=== PATIENT | male | born 1960 | race Caucasian/White ===

== ENCOUNTER 2016-06-08 14:00 | Emergency (ER) | payer MEDICAID ==
[2016-06-08 14:37] LABS: BASOPHIL# 0.1 X 10^3uL (0.0-0.1); BASOPHILS 0.5 % (0.0-2.0); EOSINOPHILS 1.4 % (0.0-6.0); EOSINOPHILS# 0.1 X 10^3uL (0.0-0.4); HEMATOCRIT 42.8 % (42.0-54.0); HEMOGLOBIN 14.7 g/dL (14.0-18.0); LYMPHOCYTES 26.2 % (20.0-40.0); LYMPHOCYTES# 2.7 X 10^3uL (0.8-3.8); MEAN CELL VOLUME 93.9 fL (80.0-100.0); MEAN CORPUS. HGB CONCENTRATION 34.3 g/dL (32.0-36.0); MEAN CORPUSCULAR HEMOGLOBIN 32.2 pg (29.0-35.0); MEAN PLATELET VOLUME 8.1 fL (7.4-10.4); MONOCYTES# 0.6 X 10^3uL (0.2-1.0); NEUTROPHILS 65.9 % (54.0-75.0); NEUTROPHILS# 6.7 X 10^3uL (2.6-6.7); PLATELET COUNT 319 X 10^3uL (130-440); RED BLOOD COUNT 4.56 X 10^6uL (4.20-6.10); RED CELL DISTRIBUTION WIDTH 13.2 % (11.5-14.5); WHITE BLOOD COUNT 10.2 X 10^3uL (3.9-10.7)
[2016-06-08 14:49] LABS: ALBUMIN 4.2 g/dL (3.5-5.0); ALKALINE PHOSPHATASE 72 U/L (38-126); ALT 36 U/L (21-72); AMYLASE 46 U/L (30-110); AST 25 U/L (17-59); BILIRUBIN, DIRECT 0.2 mg/dL (0.0-0.4); BILIRUBIN, TOTAL 0.6 mg/dL (0.2-1.3); BLOOD UREA NITROGEN 15 mg/dL (9-20); CALCIUM 9.3 mg/dL (8.4-10.2); CHLORIDE 101 mmol/L (98-107); CREATININE 0.8 mg/dL (0.7-1.3); EST GLOMERULAR FILTRATION RATE > 60 mL/min; GLUCOSE 100 mg/dL (70-100); LIPASE 148 U/L (23-300); POTASSIUM 3.6 mmol/L (3.5-5.1); SODIUM 139 mmol/L (137-145); TOTAL PROTEIN 7.4 g/dL (6.3-8.2)
--- NOTE | 2016-06-08 15:31 | US REPORT ---
Emergent right upper quadrant ultrasound was performed. No prior study is available for comparison. The gallbladder and biliary tree appear unremarkable. No stones, wall thickening, duct dilatation or fluid collection is identified. The liver and right kidney appear unremarkable. Limited images of the pancreas are unremarkable. IMPRESSION: Unremarkable emergent right upper quadrant ultrasound. MTDD
--- NOTE | 2016-06-08 15:49 | ER NURSING DOCUMENTATION ---
Nurse's Notes [facility] Name:Uriel Luna Age:56 yrs Sex:Male :1960 Arrival Date:06/08/2016 Time:14:00 Bed4 Private MD:Jesisca [facility] Diagnosis:Abdominal Pain, Epigastric Presentation: 06/08 14:02 Acuity: MILA 3 tg 14:02 Presenting complaint: Patient states: Lynnette Santos called to say she was sending pt over tg for CT of ABD due to ABD pain and elevated lipase. Transition of care: Jessica. 14:02 Method Of Arrival: Private Vehicle tg 14:16 Presenting complaint: Patient states: "I've had LUQ pain for 2 weeks with emesis, sj especially after drinking hot water Monday morning.". Triage Assessment: 14:22 General: Appears in no apparent distress, Behavior is cooperative, pleasant. Pain: sj Complains of pain in left upper quadrant Pain currently is 1 out of 10 on a pain scale. Neuro: Level of Consciousness is awake, alert, Oriented to person, place, time, event. Cardiovascular: Capillary refill < 3 seconds. Respiratory: Airway is patent Respiratory effort is even, unlabored, Respiratory pattern is regular. GI: Abdomen is flat, non- distended. Historical: - Allergies: No known drug Allergies; - Home Meds: 1. fentanyl patch 100 mcg 2. Phenergan Oral 3. Reglan Oral - PMHx: chronic nausea; - PSHx: None; - Tetanus: < 10 years. - Ebola Screening: : Patient negative for fever greater than or equal to 101.5 degrees Fahrenheit, and additional compatible Ebola Virus Disease symptoms. Patient denies exposure to infectious person. Patient denies travel to an Ebola-affected area in the 21 days before illness onset. No symptoms or risks identified at this time. . - Immunization history: Pneumococcal vaccine status is unknown, Flu Vaccine < 1 year. - Social history: Smoking status: Patient states former smoker of tobacco. Patient uses marijuana Patient/guardian denies using alcohol. Screenin:25 Infectious Disease Risk Unable to Obtain. Abuse screen: Denies threats or abuse. Denies tg injuries from another. Nutritional screening: No deficits noted. Assessment: 14:29 See Triage Assessment done by same RN. sj 15:47 GI: Bowel sounds present X 4 quads. Abd is soft and non tender X 4 quads. Vital Signs: 14:28 BP 113 / 71; Pulse 64; Resp 16; Temp 98.4(TE); Pulse Ox 87% on R/A; Weight 68.04 kg; sj Height 5 ft. 7 in. (170.18 cm); Pain 1/10; 15:46 BP 108 / 62; Pulse 56; Resp 16; Pulse Ox 92% on R/A; Pain 0/10; sj 14:28 Body Mass Index 23.49 (68.04 kg, 170.18 cm) ED Course: 14:01 Patient arrived in ED. lm3 14:01 [facility] is Private Physician. lm3 14:02 Ben Sahu, RN is Primary Nurse. tg 14:02 Triage completed. tg 14:19 Inserted peripheral IV: 18 gauge in left forearm and blood collected. tg 14:19 Oxygen Oxygen administration via nasal cannula @ 2L/min. tg 14:29 Notified ED Physician of patient's arrival and chief complaint. Dr. Rudolph notified. sj 14:29 Valuables Remains with patient Patient has correct armband on for positive sj identification. Bed in low position. Call light in reach. Side rails up X 1. 14:52 Kavin Rudolph MD is Attending Physician. cd 15:40 [facility] is Referral Physician. cd 15:40 Urine collected. Clean catch specimen. Administered Medications: 14:29 Drug: NS 0.9% 1000 ml; Route: IV; Rate: bolus; Site: left forearm; Delivery: [place] tg Tubing; 15:31 Follow up: IV Status: Completed infusion; IV Intake: 1000ml Point of Care Testing: Urine Dip: 15:40 pH: 5.5; ; Specific [place]: 1.25; Ketones: Small; Glucose: Negative; Protein: Positive sj (+); Leukocytes: Negative; Nitrite: Negative ; Blood: Negative; Bilirubin: Small (+) ; Urobilinogen: Small Intake: 15:31 IV: 1000ml; Total: 1000ml. sj Outcome: 15:41 Discharge ordered by . cd 15:47 Discharged to home ambulatory. sj 15:47 Condition: stable 15:47 Instructed on discharge instructions, follow up and referral plans. Demonstrated understanding of instructions. 15:47 IV D/Billy 15:48 Patient left the ED. Signatures: Ben Sahu RN RN tg Daley, Chris, MD MD cd Janzen, Sarah sj McKibbon-Moore, Lisa lm3
--- NOTE | 2016-06-08 15:49 | ER PHYSICIAN DOCUMENTATION ---
Physician Documentation [facility] Name:Uriel Luna Age:56 yrs Sex:Male :1960 Arrival Date:06/08/2016 Time:14:00 Bed4 [facility] Disposition: 06/08/16 15:41 Discharged to Home/Self Care. Impression: Abdominal Pain, Epigastric. - Condition is Good. - Discharge Instructions: ABDOMINAL PAIN, Unkown Cause, (Male). - Medical Reconciliation form form. - [facility]; When: Tomorrow; Reason: Recheck today's complaints, Continuance of care. - Problem is new. - Symptoms are resolved. HPI: 06/08 15:41 This 56 yrs old Male presents to ER via Private Vehicle with complaints of cd Abdominal Pain with elevated Lipase. 15:41 The patient presents with abdominal pain in the left upper quadrant. Onset: The cd symptoms/episode began/occurred gradually, 3 day(s) ago. The symptoms radiate to back. Associated signs and symptoms: Pertinent negatives: anorexia, blood in stools, chest pain, diarrhea, fever, hematuria, nausea, shortness of breath, vomiting, vomiting blood. The symptoms are described as sharp. Severity of pain: At its worst the pain was moderate in the emergency department the pain has resolved is a 0 / 10 since they placed a Fentanyl Patch on the patient today at the [facility]. The patient was recently seen by Lynnette Santos NP a couple of days ago and had an elevated Lipase. She had sent the patient over to the ED today to have a CT Scan done. The patient has not experienced similar symptoms in the past. Historical: - Allergies: No known drug Allergies; - Home Meds: 1. fentanyl patch 100 mcg 2. Phenergan Oral 3. Reglan Oral - PMHx: chronic nausea; - PSHx: None; - Tetanus: < 10 years. - Ebola Screening: : Patient negative for fever greater than or equal to 101.5 degrees Fahrenheit, and additional compatible Ebola Virus Disease symptoms. Patient denies exposure to infectious person. Patient denies travel to an Ebola-affected area in the 21 days before illness onset. No symptoms or risks identified at this time. . - Immunization history: Pneumococcal vaccine status is unknown, Flu Vaccine < 1 year. - Social history: Smoking status: Patient states former smoker of tobacco. Patient uses marijuana Patient/guardian denies using alcohol. ROS: 14:20 ENT: Negative for injury, pain, epistaxis and discharge. cd Neck: Negative for injury, pain, stiffness and swelling. Cardiovascular: Negative for chest pain, palpitations, edema and pleuritic pain. Respiratory: Negative for shortness of breath, dyspnea on exertion, cough, sputum production, wheezing, hemoptysis and pleuritic chest pain. Back: Negative for injury, pain or muscle spasms. : Negative for injury, bleeding, discharge, swelling, dysuria, frequency or urgency. MS/Extremity: Negative for injury, deformity, edema, calf tenderness, pain or coldness. Skin: Negative for injury, rash, itching and discoloration. 14:20 Neuro: Negative for headache, weakness, numbness, tingling, and seizure. cd 14:20 Constitutional: Positive for poor PO intake, Negative for chills, fever. 14:20 Abdomen/GI: Positive for abdominal pain, nausea, anorexia, Negative for vomiting, diarrhea, abdominal distension, hematemesis, black/tarry stool, rectal bleeding. 14:20 All other systems are negative. Exam: Head/Face: Normocephalic, atraumatic. Eyes: Pupils equal round and reactive to light, extra-ocular motions intact. Lids and lashes normal. Conjunctiva and sclera are non-icteric and not injected. Cornea within normal limits. Periorbital areas with no swelling, redness, or edema. ENT: Nares patent. No nasal discharge, no septal abnormalities noted. Tympanic membranes are normal and external auditory canals are clear. Oropharynx with no redness, swelling, or masses, exudates, or evidence of obstruction, uvula midline. Mucous membranes dry Neck: Trachea midline, no thyromegaly or masses palpated, and no cervical lymphadenopathy. Supple, full range of motion without nuchal rigidity, or vertebral point tenderness. No Meningismus. Chest/axilla: Normal chest wall appearance and motion. Nontender with no deformity. No lesions are appreciated. Cardiovascular: Regular rate and rhythm with a normal S1 and S2. No gallops, murmurs, or rubs. Normal PMI, no JVD. No pulse deficits. Respiratory: Lungs have equal breath sounds bilaterally, clear to auscultation and percussion. No rales, rhonchi or wheezes noted. No increased work of breathing, no retractions or nasal flaring. Back: No spinal tenderness. No costovertebral tenderness. Full range of motion. Skin: Warm, dry with normal turgor. Normal color with no rashes, no lesions, and no evidence of cellulitis. MS/ Extremity: Pulses equal, no cyanosis. Neurovascular intact. Full, normal range of motion. 14:20 Neuro: Awake and alert, GCS 15, oriented to person, place, time, and situation. cd Cranial nerves II-XII grossly intact. Motor strength 5/5 in all extremities. Sensory grossly intact. Cerebellar exam normal. Normal gait. 14:20 Constitutional: The patient appears alert, awake, non-diaphoretic, non-toxic, well developed, well nourished, anxious. 14:20 Abdomen/GI: Inspection: abdomen appears normal, Bowel sounds: normal, active, Palpation: abdomen is soft and non-tender, in all quadrants, mass, is not appreciated, rebound tenderness, is not appreciated, voluntary guarding, is not appreciated, involuntary guarding, is not appreciated, no appreciated organomegaly, Indicators: McBurney's point is not tender, Mas's sign is negative. Vital Signs: 14:28 BP 113 / 71; Pulse 64; Resp 16; Temp 98.4(TE); Pulse Ox 87% on R/A; Weight 68.04 kg; sj Height 5 ft. 7 in. (170.18 cm); Pain 1/10; 15:46 BP 108 / 62; Pulse 56; Resp 16; Pulse Ox 92% on R/A; Pain 0/10; sj 14:28 Body Mass Index 23.49 (68.04 kg, 170.18 cm) MDM: 14:15 Data interpreted: Pulse oximetry: on room air is 92 %. Interpretation: normal. cd Counseling: I had a detailed discussion with the patient and/or guardian regarding: the historical points, exam findings, and any diagnostic results supporting the discharge/admit diagnosis, lab results, the need for outpatient follow up, for a recheck, with the patient's primary care provider, to return to the emergency department if symptoms worsen or persist or if there are any questions or concerns that arise at home. Response to treatment: the patient's symptoms have markedly improved after treatment, the patient's condition has returned to base line, the patient is now symptom free, patient is well hydrated. and as a result, I will discharge patient. 14:25 Differential diagnosis: bowel obstruction, cholecystitis, Cholelithiasis, cd diverticulitis, pancreatitis, Peptic Ulcer Disease. 14:52 Patient medically screened. 15:30 Data reviewed: vital signs, nurses notes, old medical records, lab test result(s), and cd as a result, I will discharge patient, administer IV fluids, NS bolus, NS maintenence. 06/08 14:50 Order name: CBC AUTO DIF, MDIF/RMOR IF IND; Complete Time: 15:40 EDMS 06/08 15:37 Interpretation: Normal. 06/08 14:52 Order name: BASIC METABOLIC PANEL; Complete Time: 15:40 EDMS 06/08 15:37 Interpretation: Normal. 06/08 14:52 Order name: HEPATIC PANEL; Complete Time: 15:40 EDMS 06/08 15:37 Interpretation: Normal. 06/08 14:52 Order name: AMYLASE; Complete Time: 15:40 EDMS 06/08 15:37 Interpretation: Normal. 06/08 14:52 Order name: LIPASE; Complete Time: 15:40 EDMS 06/08 15:37 Interpretation: Normal. 06/08 15:48 Order name: Urine Dip; Complete Time: 15:48 sj Dispensed Medications: 14:29 Drug: NS 0.9% 1000 ml; Route: IV; Rate: bolus; Site: left forearm; Delivery: [place] tg Tubing; 15:31 Follow up: IV Status: Completed infusion; IV Intake: 1000ml Point of Care Testing: Urine Dip: 15:40 pH: 5.5; ; Specific [place]: 1.25; Ketones: Small; Glucose: Negative; Protein: Positive sj (+); Leukocytes: Negative; Nitrite: Negative ; Blood: Negative; Bilirubin: Small (+) ; Urobilinogen: Small Signatures: Ben Sahu, RN Kavin Andrews MD MD cd Janzen, Sarah sj
== END 2016-06-08 15:49 | disposition home or self-care (01) ==
LOC: ER 14:00
DX: R10.13 Epigastric pain (principal); R11.0 Nausea; E86.0 Dehydration
CPT/HCPCS: 76705; 80048; 80076; 82150; 83690; 85025; 96360; 99284

== ENCOUNTER 2016-06-17 16:25 | Emergency (ER) | payer MEDICAID ==
[2016-06-17] MEDS ORDERED: METOCLOPRAMIDE HCL 10 MG/2 ML VIAL ONE (16:49)
[2016-06-17] MEDS ORDERED: HYDROmorphone HCL 1 MG/ML SYR ONE (16:49)
[2016-06-17 16:56] LABS: ALBUMIN 4.4 g/dL (3.5-5.0); BILIRUBIN, DIRECT 0.2 mg/dL (0.0-0.4); BILIRUBIN, TOTAL 0.6 mg/dL (0.2-1.3); TOTAL PROTEIN 7.7 g/dL (6.3-8.2)
--- NOTE | 2016-06-17 17:27 | CT REPORT ---
HISTORY: Left upper quadrant pain. COMPARISON: None. TECHNIQUE: This examination was performed using automated exposure control, adjustment of mA or kV according to patient size, and/or use of iterative reconstruction technique. Multiple contiguous axial images were obtained from the lung bases through the pubic symphysis following administration of intravenous con trast. 100cc Isovue 370 contrast. FINDINGS: LUNGS: Evaluation of both lungs is technically suboptimal secondary to respiratory motion artifact. T here are mild to moderate centrilobular emphysematous changes in the visualized lungs. Linear opaciti es are most consistent with subsegmental atelectasis. There is no evidence of airspace consolidation. Hepatobiliary:No focal hepatic lesions are seen. The portal vein enhances normally. There is no intra hepatic biliary ductal dilatation. The gallbladder is incompletely distended. Spleen: Normal in size and radiographic appearance. Pancreas: The pancreatic parenchyma enhances normally. There is no evidence of pancreatic lesion, per ipancreatic inflammation or pancreatic ductal dilatation. Adrenals:Unremarkable. Kidneys: There is symmetric enhancement of the renal parenchyma. There is no evidence of hydronephro sis or renal cortical mass. Peritoneum: There is no evidence of free fluid or free air. Vessels: Unremarkable. Lymph nodes: There is no lymphadenopathy. Bowel: The stomach is incompletely distended. The small bowel appears unremarkable. The appendix is w ell visualized and appears normal. There is well-formed stool throughout the colon. No focal bowel wa ll thickening is seen. Pelvis: The bladder appears unremarkable, without intraluminal mass or calculus. The prostate is not significantly enlarged. Bones: The bones are normally mineralized and aligned. No blastic or lytic lesions are seen. The sof t tissues appear unremarkable. IMPRESSION: No acute intra-abdominal process identified. Specifically, there is no evidence of splenic or pancrea tic abnormality, hydronephrosis or renal/ureteral calculus. Mild to moderate centrilobular emphysematous changes in the visualized lungs, which may be the sequel a of smoking related lung injury. Correlation with patient history is recommended. Final Electronic Signature: This report was electronically signed by Daren Gamez MD on 06/18/19 17 5:24 PM. lynette /
--- NOTE | 2016-06-17 18:04 | ER NURSING DOCUMENTATION ---
Nurse's Notes [facility] Name:Uriel Luna Age:56 yrs Sex:Male :1960 Arrival Date:06/17/2016 Time:16:25 Bed4 Private MD:Jessica [facility] Diagnosis:Pancreatitis, Acute Presentation: 06/17 16:28 Acuity: MILA 3 rh 16:33 Presenting complaint: Patient states: pt states he has had increased pain since Monday st pt has an elevated lipase level at 495. Transition of care: Jessica. Notified ED Physician of Jonas Chery notified. 16:33 Method Of Arrival: Private Vehicle st Triage Assessment: 16:45 General: Appears in no apparent distress, Behavior is cooperative. Pain: Complains of st pain in left upper quadrant Pain currently is 6 out of 10 on a pain scale. Pain began for a week. Cardiovascular: No deficits noted. Respiratory: No deficits noted. GI: Abdomen is flat, non- distended Abd is soft X 4 quads Abdomen is tender to palpation in epigastric area and left upper quadrant. Historical: - Allergies: No known drug Allergies; - Home Meds: 1. Phenergan Oral 2. Reglan Oral - PMHx: chronic nausea; PANCREATITIS; Intractable Vomiting (June 02, 2015); Marijuana Abuse (June 02, 2015); - PSHx: NONE; - Tetanus: < 10 years. - Ebola Screening: : Patient negative for fever greater than or equal to 101.5 degrees Fahrenheit, and additional compatible Ebola Virus Disease symptoms. - Immunization history: Flu Vaccine < 1 year. - Social history: Smoking status: Patient states former smoker of tobacco. Screenin:48 Abuse screen: Denies threats or abuse. Denies injuries from another. Nutritional st screening: No deficits noted. Assessment: 17:44 General: pt resting quietly awaiting radiology report. . st Vital Signs: 16:30 BP 122 / 70; Pulse 82; Resp 16; Temp 97.6(O); Pulse Ox 91% on R/A; Weight 66.68 kg; rh Height 5 ft. 7 in. (170.18 cm); Pain 6/10; 17:17 Pulse Ox 96% ; st 17:42 Resp 80; Pulse Ox 97% on 2 lpm NC; st 16:30 Body Mass Index 23.02 (66.68 kg, 170.18 cm) ED Course: 16:28 Patient arrived in ED. ama 16:28 [facility] is Private Physician. ama 16:28 Triage completed. rh 16:30 Regina Pickard RN is Primary Nurse. st 16:32 Inserted peripheral IV: 20 gauge in left antecubital area and blood collected. 16:48 Venkatesh Mcdaniel MD is Attending Physician. 16:48 Oxygen Oxygen administration via nasal cannula @ 2L/min. st 16:48 Valuables Remains with patient Patient has correct armband on for positive st identification. Pulse Ox - RN Monitoring Only NIBP On - RN Monitoring Only. 16:[address] pm1 17:16 Patient moved back from [address]. mr 17:50 [facility] is Referral Physician. markie Administered Medications: 16:43 Drug: Dilaudid 1 mg; Route: IVP; Site: left antecubital; st 18:02 Follow up: Response: Pain is decreased st 16:43 Drug: Reglan 5 mg; Route: IVP; Site: left antecubital; st 18:03 Follow up: Response: Nausea is decreased st Outcome: 17:51 Discharge ordered by . markie 18:02 Discharged to home ambulatory. st 18:02 Condition: stable 18:02 Discharge instructions given to patient, Instructed on discharge instructions, follow up and referral plans. medication usage, Prescriptions given X 1. 18:02 IV D/Billy 18:03 Patient [address] the ED. st 04 10:53 Discharge F/U Call: Unable to reach: no answer st Signatures: Regina Pickard RN RN Venkatesh Cespedes MD MD jm McBride, Philisha pm1 Agustin Alexander, Reg Reg Patito Barahona Henrique Lau mr
--- NOTE | 2016-06-17 18:04 | ER PHYSICIAN DOCUMENTATION ---
Physician Documentation [facility] Name:Uriel Luna Age:56 yrs Sex:Male :1960 Arrival Date:06/17/2016 Time:16:25 Bed4 Private MD:Jessica [facility] ED PhysicianVenkatesh Mcdaniel Disposition: 06/17/16 17:51 Discharged to Home/Self Care. Impression: Pancreatitis, Acute. - Condition is Good. - Discharge Instructions: Acute Pancreatitis - PANCREATITIS. - Prescriptions for Hydrocodone- Acetaminophen 5-325 mg Oral Tablet - take 1 tablet by ORAL route every 6 hours As needed; 20 tablet. - Medical Reconciliation form form. - Follow up: [facility]; When: 4- 6 days; Reason: Continuance of care. - Problem is new. - Symptoms have improved. HPI: 06/17 17:24 This 56 yrs old Male presents to ER via Private Vehicle with complaints of jm Abdominal Pain. 17:24 The patient presents with abdominal pain in the epigastric area, in the left upper jm quadrant. Onset: The symptoms/episode began/occurred gradually, 1 week(s) ago. The symptoms do not radiate. Associated signs and symptoms: Pertinent positives: nausea. The symptoms are described as sharp. Modifying factors: the symptoms are aggravated by pressure. Severity of pain: in the emergency department the pain is a 8 / 10. The patient has not experienced similar symptoms in the past. The patient has been recently seen by a physician: the patient's primary care provider, Dr. Thee Bazan, who sent pt here for CT A/P b/c she got lab results that showed elevated lipase. . PT has changed his diet and cut out TCH which has helped his CVS symptoms. . Historical: - Allergies: No known drug Allergies; - Home Meds: 1. Phenergan Oral 2. Reglan Oral - PMHx: chronic nausea; PANCREATITIS; Intractable Vomiting (June 02, 2015); Marijuana Abuse (June 02, 2015); - PSHx: NONE; - Tetanus: < 10 years. - Ebola Screening: : Patient negative for fever greater than or equal to 101.5 degrees Fahrenheit, and additional compatible Ebola Virus Disease symptoms. - Immunization history: Flu Vaccine < 1 year. - Social history: Smoking status: Patient states former smoker of tobacco. ROS: 17:33 Constitutional: Negative for fatigue, fever. 17:33 Abdomen/GI: Positive for abdominal pain, nausea. 17:33 Back: Negative for radiated pain. 17:33 Psych: Negative for drug dependence, alcohol dependence. Exam: 17:33 Constitutional: The patient appears alert, awake. 17:33 Eyes: Periorbital structures: appear normal, Conjunctiva: normal. 17:33 ENT: Mouth: is normal, Voice: is normal. 17:33 Cardiovascular: Rate: normal, Rhythm: regular. 17:33 Respiratory: Respirations: normal, Breath sounds: are normal. 17:33 Abdomen/GI: Bowel sounds: normal, Palpation: moderate abdominal tenderness, in the epigastric area and left upper quadrant. 17:33 Back: CVA tenderness, is absent, vertebral tenderness, is not appreciated. 17:33 : CVA tenderness, is absent, Bladder: is normal. 17:33 Skin: Appearance: Color: pink, no rash present. 17:33 Neuro: Mentation: is normal, Memory: is normal. 17:33 Psych: Behavior/mood is pleasant, cooperative. Vital Signs: 16:30 BP 122 / 70; Pulse 82; Resp 16; Temp 97.6(O); Pulse Ox 91% on R/A; Weight 66.68 kg; rh Height 5 ft. 7 in. (170.18 cm); Pain 6/10; 17:17 Pulse Ox 96% ; st 17:42 Resp 80; Pulse Ox 97% on 2 lpm NC; st 16:30 Body Mass Index 23.02 (66.68 kg, 170.18 cm) rh MDM: 16:48 Patient medically screened. 17:53 Differential diagnosis: Hepatitis, non-specific abd pain, pancreatitis. Data reviewed: vital signs, nurses notes, old medical records, lab test result(s), radiologic studies, and as a result, I will discharge patient. Counseling: I had a detailed discussion with the patient and/or guardian regarding: the historical points, exam findings, and any diagnostic results supporting the discharge/admit diagnosis, lab results, radiology results, the need for outpatient follow up, with the patient's primary care provider, a french binder. Medication response: The patient's symptoms have improved, Dilaudid. ED course: Pt better after meds. Pt only mildly tender. CT shows no abnormalities. Will send pt home w pancreatitis instructions and pain meds. . 06/17 16:58 Order name: HEPATIC PANEL; Complete Time: 17:01 EDMS 06/17 17:29 Order name: CAT SCAN; ABD/PEL W [id number] EDMS 06/17 16:36 Order name: Iv Saline Lock; Complete Time: 16:39 st 06/17 16:36 Order name: NPO; Complete Time: 16:39 st 06/17 16:48 Order name: Oxygen; Complete Time: 16:48 st Dispensed Medications: 16:43 Drug: Dilaudid 1 mg; Route: IVP; Site: left antecubital; st 18:02 Follow up: Response: Pain is decreased st 16:43 Drug: Reglan 5 mg; Route: IVP; Site: left antecubital; st 18:03 Follow up: Response: Nausea is decreased st Signatures: Regina Pickard, RN Venkatesh Lancaster MD MD jm Hofsess, Rachel
== END 2016-06-17 18:03 | disposition home or self-care (01) ==
LOC: ER 16:25
DX: K85.90 Acute pancreatitis without necrosis or infection, unspecified (principal); R11.0 Nausea; Z79.899 Other long term (current) drug therapy
CPT/HCPCS: 74177; 80076; 96374; 96375; 99285; J1170; J2765

== ENCOUNTER 2016-06-30 03:37 | Emergency (ER) | payer MEDICAID ==
[2016-06-30] MEDS ORDERED: ONDANSETRON HCL 4 MG/2 ML VIAL ONE ×2 (04:05→06:25)
[2016-06-30 04:15] LABS: BASOPHIL# 0.2 X 10^3uL (0.0-0.1); BASOPHILS 1.3 % (0.0-2.0); EOSINOPHILS 1.4 % (0.0-6.0); EOSINOPHILS# 0.2 X 10^3uL (0.0-0.4); HEMATOCRIT 49.4 % (42.0-54.0); HEMOGLOBIN 16.9 g/dL (14.0-18.0); LYMPHOCYTES 13.8 % (20.0-40.0); LYMPHOCYTES# 1.8 X 10^3uL (0.8-3.8); MEAN CELL VOLUME 92.8 fL (80.0-100.0); MEAN CORPUS. HGB CONCENTRATION 34.3 g/dL (32.0-36.0); MEAN CORPUSCULAR HEMOGLOBIN 31.8 pg (29.0-35.0); MEAN PLATELET VOLUME 7.8 fL (7.4-10.4); MONOCYTES 4.2 % (2.0-10.0); MONOCYTES# 0.6 X 10^3uL (0.2-1.0); NEUTROPHILS 79.3 % (54.0-75.0); NEUTROPHILS# 10.4 X 10^3uL (2.6-6.7); PLATELET COUNT 336 X 10^3uL (130-440); RED BLOOD COUNT 5.32 X 10^6uL (4.20-6.10); RED CELL DISTRIBUTION WIDTH 12.8 % (11.5-14.5); WHITE BLOOD COUNT 13.2 X 10^3uL (3.9-10.7)
[2016-06-30 04:25] LABS: ALBUMIN 4.7 g/dL (3.5-5.0); ALKALINE PHOSPHATASE 93 U/L (38-126); ALT 31 U/L (21-72); AST 19 U/L (17-59); BILIRUBIN, DIRECT 0.3 mg/dL (0.0-0.4); BILIRUBIN, TOTAL 0.8 mg/dL (0.2-1.3); BLOOD UREA NITROGEN 17 mg/dL (9-20); CALCIUM 9.9 mg/dL (8.4-10.2); CHLORIDE 105 mmol/L (98-107); CREATININE 0.8 mg/dL (0.7-1.3); EST GLOMERULAR FILTRATION RATE > 60 mL/min; GLUCOSE 167 mg/dL (70-100); LIPASE 77 U/L (23-300); POTASSIUM 4.1 mmol/L (3.5-5.1); SODIUM 139 mmol/L (137-145); TOTAL PROTEIN 8.2 g/dL (6.3-8.2)
[2016-06-30 04:26] LABS: ETHYL ALCOHOL < 10 mg/dL (<10)
--- NOTE | 2016-06-30 07:07 | ER NURSING DOCUMENTATION ---
Nurse's Notes [facility] Name:Uriel Luna Age:56 yrs Sex:Male :1960 Arrival Date:06/30/2016 Time:03:37 Bed4 Private MD:Lin Santos; Sony Valenzuela Diagnosis:Dehydration;Intractable Vomiting Presentation: 06/30 03:39 Acuity: MILA 3 03:48 Presenting complaint: Patient states: Pt feels like he might have eaten something rh containing dairy yesterday and he has had cyclic vomiting since midnight. Pt had pancreatitis two weeks ago and says "that has been acting up as well." Pt states he doesn't drink alcohol anymore. Transition of care: Home. 03:48 Method Of Arrival: Walk In Triage Assessment: 03:49 General: Appears uncomfortable, Behavior is cooperative, crying. Pain: Denies pain. rh EENT: Oral mucosa is dry. Neuro: Level of Consciousness is awake, alert, obeys commands. GI: Dry heaves Reports nausea, vomiting. : No deficits noted. Derm: Skin is intact, is healthy with good turgor, Skin is pink, warm & dry. Historical: - Allergies: No known drug Allergies; - Home Meds: 1. Phenergan Oral 2. Reglan Oral - PMHx: PANCREATITIS; Intractable Vomiting (June 02, 2015); Marijuana Abuse (June 02, 2015); chronic nausea; Pancreatitis, Acute (June 17, 2016); - PSHx: NONE; - Tetanus: < 10 years. - Ebola Screening: : Patient negative for fever greater than or equal to 101.5 degrees Fahrenheit, and additional compatible Ebola Virus Disease symptoms. - Immunization history: Flu Vaccine < 1 year. - Social history: Smoking status: Patient uses tobacco products, current every day smoker. Screenin:51 Infectious Disease Risk None. Abuse screen: Denies threats or abuse. Denies injuries rh from another. Nutritional screening: No deficits noted. Assessment: 03:51 See Triage Assessment done by same RN. 05:49 Reassessment: PT sleeping., . rh 06:17 GI: Dry heaves. Vital Signs: 03:50 BP 116 / 80; Pulse 72; Resp 17; Temp 98.6(O); Pulse Ox 95% on R/A; Weight 68.04 kg; rh Height 5 ft. 7 in. (170.18 cm); 04:30 Pulse 66; Resp 15; Pulse Ox 98% on 2 lpm NC; rh 05:30 Pulse 64; Resp 14; Pulse Ox 97% on 2 lpm NC; rh 06:45 BP 122 / 70; Pulse 61; Resp 16; Pulse Ox 98% on 2 lpm NC; rh 03:50 Body Mass Index 23.49 (68.04 kg, 170.18 cm) rh Candor Coma Score: 03:50 Eye Response: spontaneous(4). Verbal Response: oriented(5). Motor Response: obeys cd commands(6). Total: 15. ED Course: 03:38 Patient arrived in ED. ma1 03:38 Lin Santos is Private Physician. ma1 03:39 Sony Valenzuela MD is Private Physician. ma1 03:39 Patito Johnson is Primary Nurse. rh 03:39 Triage completed. rh 03:48 Inserted peripheral IV: 20 gauge in left antecubital area and blood collected. rh 03:51 Valuables Remains with patient Patient has correct armband on for positive rh identification. Bed in low position. Call light in reach. Side rails up X 1. 04:16 Kavin Rudolph MD is Attending Physician. cd 04:18 Sony Valenzuela MD is Referral Physician. cd 04:24 Oxygen Oxygen administration via nasal cannula @ 2L/min. rh Administered Medications: 03:49 Drug: NS 0.9% 1000 ml; Route: IV; Rate: bolus; Site: left antecubital; rh 04:20 Follow up: IV Status: Completed infusion; IV Intake: 1000ml rh 03:56 Drug: Zofran 4 mg; Route: IVP; Infused Over: 2 mins; Site: left antecubital; rh 04:06 Follow up: Response: No change in condition rh 04:20 Drug: NS 0.9% 1000 ml; Route: IV; Rate: bolus; Site: left antecubital; rh 05:48 Follow up: IV Status: Completed infusion; IV Intake: 1000ml rh 04:20 Drug: Phenergan 12.5 mg; Route: IVP; Site: left antecubital; rh 04:28 Follow up: Response: Nausea is decreased rh 05:48 Drug: NS 0.9% 1000 ml; Route: IV; Rate: bolus; Site: left antecubital; rh 07:05 Follow up: IV Status: Completed infusion; IV Intake: 1000ml st 06:17 Drug: Zofran 4 mg; Route: IVP; Infused Over: 2 mins; Site: left antecubital; rh 06:28 Follow up: Response: Nausea is decreased rh 06:28 Drug: Phenergan 6.25 mg; Route: IVP; Site: left antecubital; rh 06:44 Follow up: Response: No change in condition rh 06:44 Drug: Phenergan 6.25 mg; Route: IVP; Site: left antecubital; rh 07:06 Follow up: Response: Nausea is decreased st Intake: 04:20 IV: 1000ml; Total: 1000ml. rh 05:48 IV: 1000ml; Total: 2000ml. rh 07:05 IV: 1000ml; Total: 3000ml. st Outcome: 04:19 Discharge ordered by MD. 07:05 Discharged to home ambulatory. st 07:05 Condition: improved 07:05 Discharge instructions given to patient, Instructed on discharge instructions, follow up and referral plans. medication usage, Prescriptions given X 1. 07:05 IV D/Billy 07:06 Patient [address] the [address]. st 07/01 11:28 Discharge F/U Call: Spoke with: patient. Have you made a f/u appointment? yes Overall lp Care on a scale of 1-10 with 10 being the best care, you rate our care as: Other comments: No concerns. Patient states he had "great care". Signatures: Regina Pickard RN RN st Pavlish, Lena, RN RN lp Daley, Chris, MD MD cd Hofsess, Rachel Destiny Serrato
--- NOTE | 2016-06-30 07:07 | ER PHYSICIAN DOCUMENTATION ---
Physician Documentation [facility] Name:Uriel Luna Age:56 yrs Sex:Male :1960 Arrival Date:06/30/2016 Time:03:37 Bed4 Private MD:Lin Santos; Sony Valenzuela ED, Chris Disposition: 06/30/16 04:19 Discharged to Home/Self Care. Impression: Dehydration, Intractable Vomiting. - Condition is Fair. - Discharge Instructions: DEHYDRATION (6y-Adult), VOMITING (6y-Adult). - Prescriptions for Zofran 4 mg Oral - take 1 tablet by ORAL route every 6 hours; 12 tablet. - Medical Reconciliation form form. - Follow up: Sony Valenzuela MD; When: 7 - 10 days; Reason: Recheck today's complaints, Continuance of care. - Problem is an acute exacerbation. - Symptoms are resolved. - Notes: Drink 2 - 3 quarts of water or Gatorade every day. Take Zofran 4mg under your tongue every 4 - 6 hours as needed for nausea or vomiting Slowly advance your diet. HPI: 06/30 03:50 This 56 yrs old Male presents to ER via Walk In with complaints of cd Nausea/Vomiting. 03:50 The patient presents to the emergency department with nausea, that is severe, with "dry cd heaves", with vomiting, that is intermittent, described as clear fluid, without any complaints of abdominal pain. Onset: The symptom(s)/episode began/occurred acutely, at 00:00. Possible causes: Ate dairy yesterday ...has history of Pancreatitis. No longer drinks alcohol. Last episode of Pancreatitis was 2 weeks ago. Has minimal LUQ abdominal discomfort, but not like his typical Pancreatitis. The symptoms are aggravated by food , The symptoms are alleviated by nothing. Associated signs and symptoms: Pertinent positives: anorexia, nausea, vomiting, Pertinent negatives: diarrhea, fever, GI bleeding. The patient has experienced similar episodes in the past. Historical: - Allergies: No known drug Allergies; - Home Meds: 1. Phenergan Oral 2. Reglan Oral - PMHx: PANCREATITIS; Intractable Vomiting (June 02, 2015); Marijuana Abuse (June 02, 2015); chronic nausea; Pancreatitis, Acute (June 17, 2016); - PSHx: NONE; - Tetanus: < 10 years. - Ebola Screening: : Patient negative for fever greater than or equal to 101.5 degrees Fahrenheit, and additional compatible Ebola Virus Disease symptoms. - Immunization history: Flu Vaccine < 1 year. - Social history: Smoking status: Patient uses tobacco products, current every day smoker. ROS: 03:50 Cardiovascular: Negative for chest pain, palpitations, edema and pleuritic pain. cd Respiratory: Negative for shortness of breath, dyspnea on exertion, cough, sputum production, wheezing, hemoptysis and pleuritic chest pain. Back: Negative for injury, pain or muscle spasms. : Negative for injury, bleeding, discharge, swelling, dysuria, frequency or urgency. MS/Extremity: Negative for injury, deformity, edema, calf tenderness, pain or coldness. Skin: Negative for injury, rash, itching and discoloration. 03:50 Neuro: Negative for headache, weakness, numbness, tingling, and seizure. cd 03:50 Constitutional: Positive for poor PO intake, Negative for body aches, chills, fever. 03:50 ENT: Negative for sore throat. 03:50 Abdomen/GI: Positive for abdominal pain, nausea, vomiting, anorexia, of the left upper quadrant, although mild, Negative for diarrhea, constipation, abdominal distension, hematemesis, black/tarry stool, rectal bleeding. 03:50 All other systems are negative. Exam: Back: No spinal tenderness. No costovertebral tenderness. Full range of motion. Skin: Warm, dry with normal turgor. Normal color with no rashes, no lesions, and no evidence of cellulitis. MS/ Extremity: Pulses equal, no cyanosis. Neurovascular intact. Full, normal range of motion. 03:50 Neuro: Awake and alert, GCS 15, oriented to person, place, time, and situation. cd Cranial nerves II-XII grossly intact. Motor strength 5/5 in all extremities. Sensory grossly intact. Cerebellar exam normal. Normal gait. 03:50 Constitutional: The patient appears alert, awake, non-diaphoretic, non-toxic, well developed, well nourished, anxious, in obvious distress, moderately distressed. 03:50 ENT: Mouth: Oral mucosa: dry, Breath odor: is normal. 03:50 Cardiovascular: Rate: normal, Rhythm: regular, Pulses: no pulse deficits are appreciated, Heart sounds: normal. 03:50 Respiratory: the patient does not display signs of respiratory distress, Respirations: normal, no acute changes, Breath sounds: are normal, clear throughout. 03:50 Abdomen/GI: Inspection: abdomen appears normal, Bowel sounds: active, Palpation: mild abdominal tenderness, in the left upper quadrant, Rectal exam: the exam is deferred, Indicators: McBurney's point is not tender, Mas's sign is negative. 03:50 Skin: Exam negative for acute changes. Vital Signs: 03:50 BP 116 / 80; Pulse 72; Resp 17; Temp 98.6(O); Pulse Ox 95% on R/A; Weight 68.04 kg; rh Height 5 ft. 7 in. (170.18 cm); 04:30 Pulse 66; Resp 15; Pulse Ox 98% on 2 lpm NC; rh 05:30 Pulse 64; Resp 14; Pulse Ox 97% on 2 lpm NC; rh 06:45 BP 122 / 70; Pulse 61; Resp 16; Pulse Ox 98% on 2 lpm NC; rh 03:50 Body Mass Index 23.49 (68.04 kg, 170.18 cm) rh Cindy Coma Score: 03:50 Eye Response: spontaneous(4). Verbal Response: oriented(5). Motor Response: obeys cd commands(6). Total: 15. MDM: 03:50 Differential diagnosis: Nonspecific abd pain, gastritis, pancreatitis, Dehydration, cd Intractable pain. Data reviewed: vital signs, nurses notes, old medical records, lab test result(s), and as a result, I will continue to observe the patient, administer IV fluids, NS bolus, NS maintenence, and Zofran and Phenergan if needed for persistent Nausea and vomiting . Data interpreted: Pulse oximetry: on room air is 98 %. Interpretation: normal. 04:16 Patient medically screened. cd 07:30 Counseling: I had a detailed discussion with the patient and/or guardian regarding: the cd historical points, exam findings, and any diagnostic results supporting the discharge/admit diagnosis, lab results, the need for outpatient follow up, for a recheck, with the patient's primary care provider, to return to the emergency department if symptoms worsen or persist or if there are any questions or concerns that arise at home. Response to treatment: the patient's symptoms have markedly improved after treatment, the patient's condition has returned to base line, the patient is now symptom free, patient is well hydrated. and as a result, I will discharge patient. 06/30 04:26 Order name: BASIC METABOLIC PANEL; Complete Time: 06:18 EDMS 06/30 06:18 Interpretation: Normal Except: GLUCOSE 167; Hyperglycemia. 06/30 04:26 Order name: HEPATIC PANEL; Complete Time: 06:18 EDMS 06/30 06:18 Interpretation: Normal. 06/30 04:26 Order name: LIPASE; Complete Time: 06:18 EDMS 06/30 06:18 Interpretation: Normal. 06/30 04:26 Order name: ETHYL ALCOHOL; Complete Time: 06:18 EDMS 06/30 06:18 Interpretation: Normal. 06/30 04:27 Order name: CBC AUTO DIF, MDIF/RMOR IF IND; Complete Time: 06:18 EDMS 06/30 06:18 Interpretation: WHITE BLOOD COUNT 13.2; NEUTROPHILS 79.3; Elevated WBC with Left shift. 06/30 03:51 Order name: Iv Saline Lock; Complete Time: 03:51 06/30 04:24 Order name: Oxygen; Complete Time: 04:24 rh Dispensed Medications: 03:49 Drug: NS 0.9% 1000 ml; Route: IV; Rate: bolus; Site: left antecubital; rh 04:20 Follow up: IV Status: Completed infusion; IV Intake: 1000ml rh 03:56 Drug: Zofran 4 mg; Route: IVP; Infused Over: 2 mins; Site: left antecubital; rh 04:06 Follow up: Response: No change in condition rh 04:20 Drug: NS 0.9% 1000 ml; Route: IV; Rate: bolus; Site: left antecubital; rh 05:48 Follow up: IV Status: Completed infusion; IV Intake: 1000ml rh 04:20 Drug: Phenergan 12.5 mg; Route: IVP; Site: left antecubital; rh 04:28 Follow up: Response: Nausea is decreased rh 05:48 Drug: NS 0.9% 1000 ml; Route: IV; Rate: bolus; Site: left antecubital; rh 07:05 Follow up: IV Status: Completed infusion; IV Intake: 1000ml st 06:17 Drug: Zofran 4 mg; Route: IVP; Infused Over: 2 mins; Site: left antecubital; rh 06:28 Follow up: Response: Nausea is decreased rh 06:28 Drug: Phenergan 6.25 mg; Route: IVP; Site: left antecubital; rh 06:44 Follow up: Response: No change in condition rh 06:44 Drug: Phenergan 6.25 mg; Route: IVP; Site: left antecubital; rh 07:06 Follow up: Response: Nausea is decreased st Signatures: Regina Pickard RN RN st Daley, Chris, MD MD cd Hofsess, Rachel
== END 2016-06-30 07:06 | disposition home or self-care (01) ==
LOC: ER 03:37
DX: E86.0 Dehydration (principal); R11.2 Nausea with vomiting, unspecified; R10.12 Left upper quadrant pain; Z79.899 Other long term (current) drug therapy
CPT/HCPCS: 80048; 80076; 80320; 83690; 85025; 96361; 96374; 96375; 96376; 99284; J2405; J2550

== ENCOUNTER 2016-07-02 06:23 | Emergency (ER) | payer MEDICAID ==
[2016-07-02] MEDS ORDERED: ONDANSETRON HCL 4 MG/2 ML VIAL ONE (06:49)
[2016-07-02 07:03] LABS: BASOPHIL# 0.1 X 10^3uL (0.0-0.1); BASOPHILS 0.7 % (0.0-2.0); HEMATOCRIT 44.4 % (42.0-54.0); LYMPHOCYTES 8.7 % (20.0-40.0); LYMPHOCYTES# 0.8 X 10^3uL (0.8-3.8); MEAN CELL VOLUME 92.6 fL (80.0-100.0); MEAN CORPUS. HGB CONCENTRATION 33.8 g/dL (32.0-36.0); MEAN CORPUSCULAR HEMOGLOBIN 31.3 pg (29.0-35.0); MEAN PLATELET VOLUME 7.4 fL (7.4-10.4); MONOCYTES 1.9 % (2.0-10.0); MONOCYTES# 0.2 X 10^3uL (0.2-1.0); NEUTROPHILS# 7.7 X 10^3uL (2.6-6.7); PLATELET COUNT 311 X 10^3uL (130-440); RED BLOOD COUNT 4.79 X 10^6uL (4.20-6.10); RED CELL DISTRIBUTION WIDTH 13.1 % (11.5-14.5); WHITE BLOOD COUNT 8.8 X 10^3uL (3.9-10.7)
[2016-07-02 07:11] LABS: A/G RATIO 1.5; ALBUMIN 4.5 g/dL (3.5-5.0); ALKALINE PHOSPHATASE 76 U/L (38-126); ALT 28 U/L (21-72); AST 18 U/L (17-59); BILIRUBIN, TOTAL 1.1 mg/dL (0.2-1.3); BLOOD UREA NITROGEN 13 mg/dL (9-20); CALCIUM 9.6 mg/dL (8.4-10.2); CHLORIDE 108 mmol/L (98-107); CREATININE 0.7 mg/dL (0.7-1.3); EST GLOMERULAR FILTRATION RATE > 60 mL/min; GLUCOSE 189 mg/dL (70-100); SODIUM 144 mmol/L (137-145); TOTAL PROTEIN 7.6 g/dL (6.3-8.2)
[2016-07-02 07:13] LABS: NEUTROPHILS 88.7 % (54.0-75.0)
[2016-07-02] MEDS ORDERED: DIPHENHYDRAMINE 50 MG/ML VIAL ONE (07:21)
[2016-07-02] MEDS ORDERED: HALOPERIDOL 5 MG/ML VIAL ONE (07:21)
--- NOTE | 2016-07-02 09:25 | ER PHYSICIAN DOCUMENTATION ---
Physician Documentation [facility] Name:Uriel Luna Age:56 yrs Sex:Male :1960 Arrival Date:07/02/2016 Time:06:23 Bed3 Private MD:Lin Santos; Sony Valenzuela ED LisaFrandy Disposition: 07/02 10:00 Chart complete. tl1 Disposition: 07/02/16 09:09 Discharged to Home/Self Care. Impression: Vomiting. - Condition is Good. - Discharge Instructions: VOMITING (6y-Adult). - Medical Reconciliation form form. - Follow up: Sony Valenzuela MD; When: 4- 6 days; Reason: Recheck today's complaints, Continuance of care. - Problem is an ongoing problem. - Symptoms have improved. HPI: 06:49 This 56 yrs old Male presents to ER via Walk In with complaints of tl1 Nausea/Vomiting. 06:49 The patient presents to the emergency department with nausea, with vomiting. tl1 06:50 The patient has experienced similar episodes in the past, multiple times. tl1 06:50 He has a long h/o cyclic vomiting, thought to be due, in part, to marijuana use, and 24 tl1 prior visits here since 2013, mostly for this problem. He did smoke some marijuana last night. Shortly thereafter he developed vomiting w/o hematemesis. No diarrhea or abdominal pain. This symptom complex is entirely consistent with multiple prior episodes. No f/c/s. No melena or hematochezia.. Historical: - Allergies: No known drug Allergies; - Home Meds: 1. Phenergan Oral - PMHx: chronic vomiting; - Tetanus: < 10 years. - Ebola Screening: : Patient denies exposure to infectious person. Patient denies travel to an Ebola-affected area in the 21 days before illness onset. . - Immunization history: Flu Vaccine < 1 year. - Social history: Smoking status: Patient states was never smoker of tobacco. Patient/guardian denies using alcohol. - Code Status:: Full code. ROS: 06:50 Abdomen/GI: Negative for abdominal pain, diarrhea, constipation, abdominal cramps, tl1 abdominal distension, hematemesis, black/tarry stool, rectal bleeding. 06:50 All other systems are negative. Exam: 06:50 Constitutional: The patient appears alert, awake, well developed, well groomed, well tl1 nourished, in obvious distress, mildly distressed, uncomfortable. 06:50 Head/face: Exam is negative for acute changes. 06:50 ENT: Mouth: Oral mucosa: pink and intact, dry. 06:50 Neck: ROM/movement: is normal. 06:50 Cardiovascular: Rate: normal, Rhythm: regular, Heart sounds: normal. 06:50 Respiratory: Respirations: normal, Breath sounds: are normal. 06:50 Abdomen/GI: Inspection: abdomen appears normal, Bowel sounds: active, Palpation: abdomen is soft and non-tender, rebound tenderness, is not appreciated, voluntary guarding, is not appreciated, Liver: no appreciated palpable abnormalities, tenderness, is not appreciated. 06:50 Back: Exam negative for acute changes, CVA tenderness, is absent. 06:50 Musculoskeletal/extremity: Extremities: all appear grossly normal, with no appreciated pain with palpation. 06:50 Skin: Exam negative for acute changes. 06:50 Neuro: Exam negative for acute changes. Vital Signs: 06:40 BP 124 / 76; Pulse 62; Resp 15; Temp 98; Pulse Ox 92% on R/A; Weight 65.77 kg; Height 5 lb ft. 7 in. (170.18 cm); Pain 6/10; 06:42 Temp 99.1; lb 08:49 BP 125 / 77; Pulse 62; Pulse Ox 93% on R/A; st 06:40 Body Mass Index 22.71 (65.77 kg, 170.18 cm) lb MDM: 06:49 Patient medically screened. tl1 09:00 Differential diagnosis: gastritis, cholecystitis, pancreatitis, cyclic vomiting tl1 syndrome. Data reviewed: vital signs, nurses notes, old medical records, lab test result(s), CBC, electrolytes, hepatic panel, and as a result, I will discharge patient. Counseling: I had a detailed discussion with the patient and/or guardian regarding: the historical points, exam findings, and any diagnostic results supporting the discharge/admit diagnosis, lab results, the need for outpatient follow up, to return to the emergency department if symptoms worsen or persist or if there are any questions or concerns that arise at home. Medication response: The patient's symptoms have improved. Response to treatment: the patient's symptoms have markedly improved after treatment, and as a result, I will discharge patient. 07/02 07:13 Order name: CBC AUTO DIF, MDIF/RMOR IF IND; Complete Time: 14:49 EDMS 07/02 14:49 Interpretation: WHITE BLOOD COUNT 8.8; HEMOGLOBIN 15.0; HEMATOCRIT 44.4; PLATELET COUNT tl1 311; NEUTROPHILS 88.7; LYMPHOCYTES 8.7. 07/02 07:13 Order name: COMPREHENSIVE METABOLIC PANEL; Complete Time: 14:49 EDMS 04 14:49 Interpretation: Normal Except: GLUCOSE 189. tl1 07/02 07:03 Order name: PO Challenge; Complete Time: 08:04 tl1 Dispensed Medications: 06:54 Drug: NS 0.9% 1000 ml; Route: IV; Rate: bolus; Site: left antecubital; fc 07:14 Follow up: IV Status: Completed infusion; IV Intake: 1000ml st 06:54 Drug: Zofran 8 mg; Route: IVP; Infused Over: 2 mins; Site: left antecubital; 07:08 Follow up: Response: Nausea is decreased st 07:14 Drug: Haldol 5 mg; Route: IVP; Site: left antecubital; st 08:03 Follow up: Response: Nausea is decreased st 07:14 Drug: Benadryl 25 mg; Route: IVP; Site: left antecubital; st 08:03 Follow up: Response: Nausea is decreased st 07:14 Drug: NS 0.9% 1000 ml; Route: IV; Rate: bolus; Site: left antecubital; st 08:04 Follow up: IV Status: Completed infusion; IV Intake: 1000ml st 08:03 Drug: NS 0.9% 1000 ml; Route: IV; Rate: bolus; Site: left antecubital; st 08:50 Follow up: IV Status: Completed infusion; IV Intake: 1000ml st Signatures: Regian Pickard, RN Frandy Mishra MD MD tl1 moises dash Lynda lb
--- NOTE | 2016-07-02 09:25 | ER NURSING DOCUMENTATION ---
Nurse's Notes [facility] Name:Uriel Luna Age:56 yrs Sex:Male :1960 Arrival Date:07/02/2016 Time:06:23 Bed3 Private MD:Lin Santos; Sony Valenzuela Diagnosis:Vomiting Presentation: 07/02 06:36 Presenting complaint: Patient states: vomiting for 10 hrs. Transition of care: Home. lb Notified ED Physician of Dr. Gonzalez notified. 06:36 Acuity: MILA 3 lb 06:36 Method Of Arrival: Walk In Triage Assessment: 06:38 General: Appears distressed, Behavior is appropriate for age. Pain: Complains of pain lb in abdomen Pain does not radiate. Pain currently is 6 out of 10 on a pain scale. GI: Reports nausea, vomiting. Historical: - Allergies: No known drug Allergies; - Home Meds: 1. Phenergan Oral - PMHx: chronic vomiting; - Tetanus: < 10 years. - Ebola Screening: : Patient denies exposure to infectious person. Patient denies travel to an Ebola-affected area in the 21 days before illness onset. . - Immunization history: Flu Vaccine < 1 year. - Social history: Smoking status: Patient states was never smoker of tobacco. Patient/guardian denies using alcohol. - Code Status:: Full code. Screenin:41 Infectious Disease Risk None. Abuse screen: Denies threats or abuse. Denies injuries lb from another. Nutritional screening: No deficits noted. Assessment: 06:40 See Triage Assessment done by same RN. lb 08:04 General: pt states his nausea is doing better.. st 08:50 General: pt states he is feeling better and is ready to go home. . st Vital Signs: 06:40 BP 124 / 76; Pulse 62; Resp 15; Temp 98; Pulse Ox 92% on R/A; Weight 65.77 kg; Height 5 lb ft. 7 in. (170.18 cm); Pain 6/10; 06:42 Temp 99.1; lb 08:49 BP 125 / 77; Pulse 62; Pulse Ox 93% on R/A; st 06:40 Body Mass Index 22.71 (65.77 kg, 170.18 cm) lb ED Course: 06:25 Patient arrived in ED. ma1 06:25 Sony Valenzuela MD is Private Physician. ma1 06:25 Lin Santos is Private Physician. ma1 06:36 Paris Pastrana is Primary Nurse. lb 06:36 Triage completed. lb 06:41 Valuables Remains with patient. lb 06:49 Frandy Gonzalez MD is Attending Physician. tl1 06:53 Inserted peripheral IV: 20 gauge in left antecubital area and blood collected. fc 08:04 Diet: Patient given ice chips. st 09:08 Sony Valenzuela MD is Referral Physician. tl1 Administered Medications: 06:54 Drug: NS 0.9% 1000 ml; Route: IV; Rate: bolus; Site: left antecubital; fc 07:14 Follow up: IV Status: Completed infusion; IV Intake: 1000ml st 06:54 Drug: Zofran 8 mg; Route: IVP; Infused Over: 2 mins; Site: left antecubital; fc 07:08 Follow up: Response: Nausea is decreased st 07:14 Drug: Haldol 5 mg; Route: IVP; Site: left antecubital; st 08:03 Follow up: Response: Nausea is decreased st 07:14 Drug: Benadryl 25 mg; Route: IVP; Site: left antecubital; st 08:03 Follow up: Response: Nausea is decreased st 07:14 Drug: NS 0.9% 1000 ml; Route: IV; Rate: bolus; Site: left antecubital; st 08:04 Follow up: IV Status: Completed infusion; IV Intake: 1000ml st 08:03 Drug: NS 0.9% 1000 ml; Route: IV; Rate: bolus; Site: left antecubital; st 08:50 Follow up: IV Status: Completed infusion; IV Intake: 1000ml st Intake: 07:14 IV: 1000ml; Total: 1000ml. st 08:04 IV: 1000ml; Total: 2000ml. st 08:50 IV: 1000ml; Total: 3000ml. st Outcome: 09:09 Discharge ordered by . tl1 09:10 IV D/Billy st 09:23 Discharged to home ambulatory. st 09:23 Condition: improved 09:23 Discharge instructions given to patient, Instructed on discharge instructions, follow up and referral plans. 09:24 Patient [address] the ED. st Addendum: 07/04/2016 18:21 Addendum: Fallow up call: pt is feeling better today. pt has no questions or concerns. .st Signatures: Regina Pickard, RN Frandy Mishra MD MD tl1 moises dash Lynda lb Addison, Melissa ma1
== END 2016-07-02 09:24 | disposition home or self-care (01) ==
LOC: ER 06:23
DX: R11.2 Nausea with vomiting, unspecified (principal); E86.0 Dehydration; F12.90 Cannabis use, unspecified, uncomplicated
CPT/HCPCS: 80053; 85025; 96361; 96374; 96375; 99283; J1200; J1630; J2405

== ENCOUNTER 2016-07-31 06:49 | Emergency (ER) | payer MEDICAID ==
[2016-07-31] MEDS ORDERED: ONDANSETRON HCL 4 MG/2 ML VIAL ONE ×2 (07:16→08:10)
[2016-07-31 07:39] LABS: BASOPHIL# 0.1 X 10^3uL (0.0-0.1); BASOPHILS 0.9 % (0.0-2.0); EOSINOPHILS 0.2 % (0.0-6.0); HEMOGLOBIN 16.9 g/dL (14.0-18.0); MEAN CELL VOLUME 92.5 fL (80.0-100.0); MEAN CORPUS. HGB CONCENTRATION 35.2 g/dL (32.0-36.0); MEAN CORPUSCULAR HEMOGLOBIN 32.5 pg (29.0-35.0); MEAN PLATELET VOLUME 8.3 fL (7.4-10.4); MONOCYTES# 0.2 X 10^3uL (0.2-1.0); NEUTROPHILS# 9.7 X 10^3uL (2.6-6.7); PLATELET COUNT 308 X 10^3uL (130-440); RED BLOOD COUNT 5.18 X 10^6uL (4.20-6.10)
[2016-07-31 07:43] LABS: ALBUMIN 4.9 g/dL (3.5-5.0); ALKALINE PHOSPHATASE 84 U/L (38-126); ALT 29 U/L (21-72); AST 20 U/L (17-59); BILIRUBIN, DIRECT 0.2 mg/dL (0.0-0.4); BLOOD UREA NITROGEN 20 mg/dL (9-20); CALCIUM 10.2 mg/dL (8.4-10.2); CHLORIDE 107 mmol/L (98-107); CREATININE 0.8 mg/dL (0.7-1.3); EST GLOMERULAR FILTRATION RATE > 60 mL/min; GLUCOSE 187 mg/dL (70-100); LIPASE 40 U/L (23-300); POTASSIUM 4.4 mmol/L (3.5-5.1); SODIUM 148 mmol/L (137-145); TOTAL PROTEIN 8.5 g/dL (6.3-8.2)
[2016-07-31 07:58] LABS: NEUTROPHILS 87.9 % (54.0-75.0)
[2016-07-31] MEDS ORDERED: FAMOTIDINE IN SALINE, ISO-OSM 50 ML IV ONE (08:10)
[2016-07-31] MEDS ORDERED: METOCLOPRAMIDE HCL 10 MG/2 ML VIAL ONE (09:03)
--- NOTE | 2016-07-31 09:28 | ER PHYSICIAN DOCUMENTATION ---
Physician Documentation [facility] Name:Uriel Luna Age:56 yrs Sex:Male :1960 Arrival Date:07/31/2016 Time:06:49 Bed4 Private MD:Lin Santos ED, John Disposition: 07/31/16 09:04 Discharged to Home/Self Care. Impression: Vomiting - Dehydration. - Condition is Good. - Medical Reconciliation form form. - Follow up: Lin Santos; When: 2 - 3 days; Reason: Continuance of care. - Problem is new. - Symptoms have improved. HPI: 07/31 08:31 This 56 yrs old Male presents to ER via Walk In with complaints of jm Nausea/Vomiting. 08:31 The patient presents to the emergency department with nausea, with vomiting, with jm associated abdominal pain, of the epigastric area. Onset: The symptom(s)/episode began/occurred today. Possible causes: chronic CVS. The symptoms are alleviated by nothing. The patient has experienced similar episodes in the past. The patient has not recently seen a physician. Historical: - Allergies: No known drug Allergies; - Home Meds: 1. Phenergan Oral Unknown - Tetanus: < 10 years. - Ebola Screening: : No symptoms or risks identified at this time. . - Immunization history: Flu Vaccine < 1 year. - Social history: Smoking status: Patient uses tobacco products, current every day smoker. ROS: 08:32 Constitutional: Negative for fatigue, fever. jm 08:32 Respiratory: Negative for cough, shortness of breath. 08:32 Abdomen/GI: Positive for nausea, vomiting, abdominal cramps, Negative for diarrhea. 08:32 Neuro: Negative for altered mental status, dizziness. 08:32 Psych: Positive for drug dependence, THC, Negative for alcohol dependence. Exam: 08:32 Constitutional: The patient appears alert, awake, in obvious distress, moderately jm distressed. 08:32 Cardiovascular: Rate: normal, Rhythm: regular. 08:32 Respiratory: Respirations: normal, Breath sounds: are normal. 08:32 Abdomen/GI: Bowel sounds: normal, Palpation: abdomen is soft and non-tender. 08:32 Special observations: actively vomiting. . Vital Signs: 06:56 Temp 97.7; Weight 68.04 kg; Height 5 ft. 7 in. (170.18 cm); Pain 8/10; jt 07:02 BP 131 / 80; Pulse 58; Resp 16; Pulse Ox 95% ; jt 09:24 BP 144 / 92; cb 06:56 Body Mass Index 23.49 (68.04 kg, 170.18 cm) jt MDM: 06:56 Patient medically screened. 08:33 Differential diagnosis: Nonspecific abd pain, gastroenteritis, CVS. Data reviewed: vital signs, nurses notes, old medical records, lab test result(s), and as a result, I will discharge patient. Counseling: I had a detailed discussion with the patient and/or guardian regarding: the historical points, exam findings, and any diagnostic results supporting the discharge/admit diagnosis, lab results, the need for outpatient follow up, with the patient's primary care provider. Response to treatment: the patient's symptoms have markedly improved after treatment. 07/31 07:45 Order name: BASIC METABOLIC PANEL; Complete Time: 08:24 EDMS 07/31 07:45 Order name: HEPATIC PANEL; Complete Time: 08:24 EDPA 07/31 07:45 Order name: LIPASE; Complete Time: 08:24 EDMS 07/31 07:59 Order name: CBC AUTO DIF, MDIF/RMOR IF IND; Complete Time: 08:24 EDPA 07/31 07:03 Order name: I & O; Complete Time: 07:47 07/31 07:03 Order name: NPO; Complete Time: 07:47 Dispensed Medications: 07:33 Drug: NS 0.9% 2000 ml; Volume: 2000 ml; Route: IV; Rate: bolus; Infused Over: 2 hrs; [facility] Site: left antecubital; Delivery: [place] [facility]; 09:10 Follow up: IV Status: Infusion discontinued cb 09:20 Follow up: IV Status: Completed infusion; IV Intake: 2000ml cb 07:34 Drug: Zofran 8 mg; Route: IVP; Rate: 8 bolus; Infused Over: 2 mins; Site: left mk4 antecubital; 09:50 Follow up: Response: No change in condition cb 07:55 Drug: NS 0.9% 50 ml, Pepcid 20 mg; Route: IVPB; Site: left antecubital; cb 09:01 Follow up: Response: No change in condition cb 07:55 Drug: Zofran 4 mg; Route: IVP; Infused Over: 2 mins; Site: left antecubital; cb 09:02 Follow up: Response: No change in condition cb 08:47 Not Given (Other Intervention Used): Phenergan 12.5 mg IVP once cb 08:55 Drug: Reglan 5 mg; Route: IVP; Site: left antecubital; cb 09:56 Follow up: Response: Nausea is decreased cb Signatures: Juani Hua RN RN Venkatesh Hartman MD MD jm King, Melody mk4
--- NOTE | 2016-07-31 09:28 | ER NURSING DOCUMENTATION ---
Nurse's Notes [facility] Name:Uriel Luna Age:56 yrs Sex:Male :1960 Arrival Date:07/31/2016 Time:06:49 Bed4 Private MD:Lin Santos Diagnosis:Vomiting - Dehydration Presentation: 07/31 07:28 Presenting complaint: Patient states: Nausea and vomiting all night. States HX- mk4 pancreatitis. Transition of care: Home. 07:28 Method Of Arrival: Walk In [facility] 07:28 Acuity: MILA 3 4 Triage Assessment: 07:28 GI: Reports diarrhea, nausea. cb 07:29 General: Appears distressed, Behavior is crying. Pain: Complains of pain in abdomen 4 Pain does not radiate. Pain currently is 8 out of 10 on a pain scale. EENT: No deficits noted. Neuro: No deficits noted. Cardiovascular: No deficits noted. Respiratory: No deficits noted. GI: Abdomen is flat, Pt is actively vomiting Dry heaves. : No deficits noted. Derm: No deficits noted. Musculoskeletal: No deficits noted. Historical: - Allergies: No known drug Allergies; - Home Meds: 1. Phenergan Oral Unknown - Tetanus: < 10 years. - Ebola Screening: : No symptoms or risks identified at this time. . - Immunization history: Flu Vaccine < 1 year. - Social history: Smoking status: Patient uses tobacco products, current every day smoker. Screenin:36 Infectious Disease Risk None. Abuse screen: Denies injuries from another. Nutritional 4 screening: No deficits noted. Assessment: 07:35 See Triage Assessment done by same RN. [facility] Vital Signs: 06:56 Temp 97.7; Weight 68.04 kg; Height 5 ft. 7 in. (170.18 cm); Pain 8/10; jt 07:02 BP 131 / 80; Pulse 58; Resp 16; Pulse Ox 95% ; jt 09:24 BP 144 / 92; cb 06:56 Body Mass Index 23.49 (68.04 kg, 170.18 cm) t ED Course: 06:50 Patient arrived in ED. jt 06:50 Lin Santos is Private Physician. jt 07:02 Venkatesh Mcdaniel MD is Attending Physician. 07:28 Fauzia Allen is Primary Nurse. [facility] 07:28 Triage completed. mk4 07:35 Arm band placed on Bed in low position Call Light in Reach Gowned Side rails up x2 mk4 Emesis basin given. Labs ordered per protocol. Drawn by ED staff. 07:36 Valuables Remains with patient. Pulse Ox - RN Monitoring Only NIBP On - RN Monitoring mk4 Only. Door closed. Noise minimized. Lights dimmed. Warm blanket given. 07:37 Labs drawn. (by ED staff). Inserted peripheral IV: 20 gauge in left antecubital area. mk4 08:34 Lin Santos is Referral Physician. jm 09:04 Lin Santos is Referral Physician. markie Administered Medications: 07:33 Drug: NS 0.9% 2000 ml; Volume: 2000 ml; Route: IV; Rate: bolus; Infused Over: 2 hrs; mk4 Site: left antecubital; Delivery: [place] Tub[facility]; 09:10 Follow up: IV Status: Infusion discontinued cb 09:20 Follow up: IV Status: Completed infusion; IV Intake: 2000ml cb 07:34 Drug: Zofran 8 mg; Route: IVP; Rate: 8 bolus; Infused Over: 2 mins; Site: left mk4 antecubital; 09:50 Follow up: Response: No change in condition cb 07:55 Drug: NS 0.9% 50 ml, Pepcid 20 mg; Route: IVPB; Site: left antecubital; cb 09:01 Follow up: Response: No change in condition cb 07:55 Drug: Zofran 4 mg; Route: IVP; Infused Over: 2 mins; Site: left antecubital; cb 09:02 Follow up: Response: No change in condition cb 08:47 Not Given (Other Intervention Used): Phenergan 12.5 mg IVP once cb 08:55 Drug: Reglan 5 mg; Route: IVP; Site: left antecubital; cb 09:56 Follow up: Response: Nausea is decreased cb Intake: 09:20 IV: 2000ml; Total: 2000ml. cb Outcome: 08:35 Discharge ordered by . markie 09:04 Discharge ordered by . markie 09:24 Discharged to home ambulatory. cb 09:24 Condition: stable 09:24 Discharge instructions given to patient, Instructed on discharge instructions, follow up and referral plans. Demonstrated understanding of instructions, Prescriptions given X 1. 09:24 IV D/Billy 09:27 Patient left the ED. cb Signatures: Juani Hua, LLOYD RN Venkatesh Hartman MD MD jm King, Melody mk4 Tennant, Joanne jt
== END 2016-07-31 09:28 | disposition home or self-care (01) ==
LOC: ER 06:49
DX: E86.0 Dehydration (principal); R11.2 Nausea with vomiting, unspecified; R10.13 Epigastric pain; F17.210 Nicotine dependence, cigarettes, uncomplicated; F12.20 Cannabis dependence, uncomplicated
CPT/HCPCS: 80048; 80076; 83690; 85025; 96361; 96374; 96375; 99284; J2405; J2765

== ENCOUNTER 2016-09-24 18:20 | Emergency (ER) | payer MEDICAID ==
[2016-09-24 18:58] LABS: BASOPHIL# 0.1 X 10^3uL (0.0-0.1); BASOPHILS 1.1 % (0.0-2.0); EOSINOPHILS 0.2 % (0.0-6.0); HEMOGLOBIN 16.6 g/dL (14.0-18.0); LYMPHOCYTES 13.2 % (20.0-40.0); LYMPHOCYTES# 1.8 X 10^3uL (0.8-3.8); MEAN CELL VOLUME 93.4 fL (80.0-100.0); MEAN CORPUSCULAR HEMOGLOBIN 31.7 pg (29.0-35.0); MEAN PLATELET VOLUME 8.2 fL (7.4-10.4); MONOCYTES 2.6 % (2.0-10.0); MONOCYTES# 0.4 X 10^3uL (0.2-1.0); NEUTROPHILS# 11.2 X 10^3uL (2.6-6.7); PLATELET COUNT 316 X 10^3uL (130-440); RED BLOOD COUNT 5.25 X 10^6uL (4.20-6.10); RED CELL DISTRIBUTION WIDTH 13.2 % (11.5-14.5); WHITE BLOOD COUNT 13.6 X 10^3uL (3.9-10.7)
[2016-09-24 19:12] LABS: ALBUMIN 4.7 g/dL (3.5-5.0); ALKALINE PHOSPHATASE 75 U/L (38-126); ALT 35 U/L (21-72); AST 22 U/L (17-59); BILIRUBIN, DIRECT 0.3 mg/dL (0.0-0.4); BLOOD UREA NITROGEN 17 mg/dL (9-20); CALCIUM 10.6 mg/dL (8.4-10.2); CHLORIDE 104 mmol/L (98-107); EST GLOMERULAR FILTRATION RATE > 60 mL/min; GLUCOSE 116 mg/dL (70-100); LIPASE 37 U/L (23-300); POTASSIUM 4.2 mmol/L (3.5-5.1); SODIUM 142 mmol/L (137-145); TOTAL PROTEIN 8.3 g/dL (6.3-8.2)
[2016-09-24 19:19] LABS: NEUTROPHILS 82.9 % (54.0-75.0)
--- NOTE | 2016-09-24 19:59 | ER NURSING DOCUMENTATION ---
Nurse's Notes [facility] Name:Uriel Luna Age:56 yrs Sex:Male :1960 Arrival Date:09/24/2016 Time:18:20 Bed4 Private MD:Lin Santos Diagnosis:Vomiting Presentation: 09/24 18:34 Acuity: MILA 3 mk2 18:39 Presenting complaint: Patient states: Pt states he has cyclical vomiting each night mk2 that ends around 5 a.m but suspects he accidently ate butter and it has made him vomit all day as well. Pt denies pain and diarrhea. Transition of care: Home. Care prior to arrival: Medication(s) given: Zofran 4mgODT. 18:39 Method Of Arrival: Walk In 2 Triage Assessment: 18:42 General: Appears in no apparent distress, Behavior is cooperative, pleasant. Pain: mk2 Denies pain. Neuro: No deficits noted. Cardiovascular: Rhythm is regular. Respiratory: Respiratory effort is unlabored, Pt is 84-86 on RA and states he's on oxygen at night but didn't know he was low during the day. Breath sounds are clear. GI: Reports vomiting, since last night. Historical: - Allergies: No known drug Allergies; - Home Meds: 1. Phenergan Oral Unknown 2. Zofran 4 mg oral tab 3. Reglan 5 mg/5 mL oral soln 5 mL once daily 4. night oxygen - PMHx: GASTRIC REFLUX; cyclical vomiting; - PSHx: None; - Tetanus: < 10 years. - Ebola Screening: : Patient negative for fever greater than or equal to 101.5 degrees Fahrenheit, and additional compatible Ebola Virus Disease symptoms. Patient denies exposure to infectious person. Patient denies travel to an Ebola-affected area in the 21 days before illness onset. No symptoms or risks identified at this time. . - Immunization history: Flu Vaccine < 1 year. - Social history: Smoking status: Patient states former smoker of tobacco. Patient/guardian denies using alcohol, street drugs. Screenin:44 Infectious Disease Risk None. Abuse screen: Denies threats or abuse. Nutritional mk2 screening: No deficits noted. Assessment: 18:44 See Triage Assessment done by same RN. 2 Vital Signs: 18:44 BP 120 / 73; Pulse 77; Resp 15; Temp 98.2; Pulse Ox 86% on R/A; Weight 68.04 kg; Height mk2 5 ft. 7 in. (170.18 cm); Pain 0/10; 19:56 BP 119 / 62; Pulse 74; Resp 13; Pulse Ox 90% on R/A; Pain 0/10; mk2 18:44 Body Mass Index 23.49 (68.04 kg, 170.18 cm) mk2 ED Course: 18:21 Patient arrived in ED. arc 18:22 Lin Santos is Private Physician. arc 18:26 Aren Cortez MD is Attending Physician. be 18:32 Lin Santos is Referral Physician. be 18:33 Inserted peripheral IV: 18 gauge in left antecubital area and blood collected. cb 18:34 Johanna Herbert, RN is Primary Nurse. mk2 18:34 Triage completed. mk2 18:44 Arm band placed on Bed in low position Call Light in Reach Gowned HOB Elevated Side mk2 rails up x1. 18:45 Valuables Remains with patient Patient has correct armband on for positive mk2 identification. Placed in gown. Bed in low position. Call light in reach. Side rails up X 1. Pulse ox on. NIBP on. Warm blanket given. 19:20 Resting quietly. Pt requests a third bag, allegra agrees. mk2 19:25 Attending Physician role handed off by Aren Cortez MD sc 19:25 Jevon Santos MD is Attending Physician. sc Administered Medications: 18:00 Drug: NS 0.9% 1000 ml; Route: IV; Rate: bolus; Site: left antecubital; mk2 19:19 Follow up: IV Status: Completed infusion; IV Intake: 1000ml mk2 18:45 Drug: NS 0.9% 1000 ml; Route: IV; Rate: bolus; Site: left antecubital; mk2 19:18 Follow up: IV Status: Completed infusion mk2 18:45 Drug: Phenergan 12.5 mg; Route: IVP; Site: left antecubital; mk2 19:18 Follow up: Response: No adverse reaction mk2 19:20 Drug: NS 0.9% 1000 ml; Route: IV; Rate: bolus; Site: left antecubital; mk2 19:56 Follow up: IV Status: Completed infusion; IV Intake: 1000ml mk2 Intake: 19:19 IV: 1000ml; Total: 1000ml. mk2 19:56 IV: 1000ml; Total: 2000ml. mk2 Outcome: 18:33 Discharge ordered by . be 19:56 Discharged to home ambulatory. mk2 19:56 Condition: improved 19:56 Discharge instructions given to patient, Instructed on discharge instructions, follow up and referral plans. medication usage. 19:56 IV D/Billy 19:57 Patient left the ED. mk2 Signatures: Juani Hua, RN RN Jevon Burgos MD MD sc Elliott, Brian, MD MD be Kruger, Meg, RN RN evette2 Britney Santos, Reg Reg arc
--- NOTE | 2016-09-24 20:01 | ER PHYSICIAN DOCUMENTATION ---
Physician Documentation [facility] Name:Uriel Luna Age:56 yrs Sex:Male :1960 Arrival Date:09/24/2016 Time:18:20 Bed4 Private MD:Lin Santos ED, Scott Disposition: 09/24/16 18:33 Discharged to Home/Self Care. Impression: Vomiting. - Condition is Good. - Discharge Instructions: cyclic vomiting syndrome - DIET, Vomiting or Diarrhea [6yr-Adult]. - Medical Reconciliation form form. - Follow up: Lin Santos; When: As needed; Reason: Continuance of care. - Problem is an acute exacerbation. - Symptoms have improved. HPI: 09/24 19:10 This 56 yrs old Male presents to ER via Walk In with complaints of Vomiting. sc 19:10 The patient presents to the emergency department with nausea, with vomiting, that is sc continuous, described as clear fluid. Onset: The symptom(s)/episode began/occurred at an unknown time. Possible causes: bad food exposure, chronic mj use. Associated signs and symptoms: The patient has no apparent associated signs or symptoms. Severity of symptoms: At their worst the symptoms were moderate. The patient has experienced similar episodes in the past, chronically. Historical: - Allergies: No known drug Allergies; - Home Meds: 1. Phenergan Oral Unknown 2. Zofran 4 mg oral tab 3. Reglan 5 mg/5 mL oral soln 5 mL once daily 4. night oxygen - PMHx: GASTRIC REFLUX; cyclical vomiting; - PSHx: None; - Tetanus: < 10 years. - Ebola Screening: : Patient negative for fever greater than or equal to 101.5 degrees Fahrenheit, and additional compatible Ebola Virus Disease symptoms. Patient denies exposure to infectious person. Patient denies travel to an Ebola-affected area in the 21 days before illness onset. No symptoms or risks identified at this time. . - Immunization history: Flu Vaccine < 1 year. - Social history: Smoking status: Patient states former smoker of tobacco. Patient/guardian denies using alcohol, street drugs. ROS: 19:11 Constitutional: Negative for fever, chills, and weight loss. sc Eyes: Negative for injury, pain, redness, and discharge. ENT: Negative for injury, pain, and discharge. Neck: Negative for injury, pain, and swelling. Cardiovascular: Negative for chest pain, palpitations, and edema. Respiratory: Negative for shortness of breath, cough, wheezing, and pleuritic chest pain. Back: Negative for injury and pain. Skin: Negative for injury, rash, and discoloration. 19:11 Neuro: Negative for headache, weakness, numbness, tingling, and seizure. sc 19:11 Abdomen/GI: Positive for nausea, vomiting. Exam: Head/Face: Normocephalic, atraumatic. Eyes: Pupils equal round and reactive to light, extra-ocular motions intact. Lids and lashes normal. Conjunctiva and sclera are non-icteric and not injected. Cornea within normal limits. Periorbital areas with no swelling, redness, or edema. Neck: Trachea midline, no thyromegaly or masses palpated, and no cervical lymphadenopathy. Supple, full range of motion without nuchal rigidity, or vertebral point tenderness. No meningismus. Chest/axilla: Normal chest wall appearance and motion. Nontender with no deformity. No lesions are appreciated. Respiratory: Lungs have equal breath sounds bilaterally, clear to auscultation and percussion. No rales, rhonchi or wheezes noted. No increased work of breathing, no retractions or nasal flaring. 19:11 Back: No spinal tenderness. No costovertebral tenderness. Full range of motion. sc 19:11 Constitutional: The patient appears in obvious distress, mildly distressed. 19:11 ENT: Mouth: Oral mucosa: dry. 19:11 Cardiovascular: Rate: normal, Rhythm: regular. 19:11 Abdomen/GI: Inspection: abdomen appears normal, Bowel sounds: normal, Palpation: abdomen is soft and non-tender. 19:11 Skin: Turgor: is poor. Vital Signs: 18:44 BP 120 / 73; Pulse 77; Resp 15; Temp 98.2; Pulse Ox 86% on R/A; Weight 68.04 kg; Height mk2 5 ft. 7 in. (170.18 cm); Pain 0/10; 19:56 BP 119 / 62; Pulse 74; Resp 13; Pulse Ox 90% on R/A; Pain 0/10; mk2 18:44 Body Mass Index 23.49 (68.04 kg, 170.18 cm) mk2 MDM: 18:27 Patient medically screened. be 19:12 Differential diagnosis: gastritis, viral gastroenteritis, gastroenteritis, chronic sc cyclic vomiting or cannabis hyperemesis type syndrome. Data reviewed: vital signs, nurses notes, old medical records, lab test result(s), and as a result, I will continue to observe the patient, administer IV fluids. Counseling: I had a detailed discussion with the patient and/or guardian regarding: the historical points, exam findings, and any diagnostic results supporting the discharge/admit diagnosis, lab results, the need for outpatient follow up. Response to treatment: the patient's symptoms have markedly improved after treatment. 09/24 19:20 Order name: BASIC METABOLIC PANEL; Complete Time: 11:17 EDMS 09/25 11:16 Interpretation: Normal Except: mild hyperglycemia. be 09/24 19:20 Order name: HEPATIC PANEL; Complete Time: 11:17 EDMS 09/25 11:17 Interpretation: Normal. be 09/24 19:20 Order name: LIPASE; Complete Time: 11:17 EDMS 07 11:17 Interpretation: Normal. be 09/24 19:33 Order name: CBC AUTO DIF, MDIF/RMOR IF IND; Complete Time: 11:17 EDMS 09/25 11:17 Interpretation: Normal Except: Leukocytosis with left shift and polycythemia. be 09/24 18:31 Order name: NPO; Complete Time: 18:45 be 09/24 18:31 Order name: PO Challenge; Complete Time: 18:45 be Dispensed Medications: 18:00 Drug: NS 0.9% 1000 ml; Route: IV; Rate: bolus; Site: left antecubital; mk2 19:19 Follow up: IV Status: Completed infusion; IV Intake: 1000ml mk2 18:45 Drug: NS 0.9% 1000 ml; Route: IV; Rate: bolus; Site: left antecubital; mk2 19:18 Follow up: IV Status: Completed infusion mk2 18:45 Drug: Phenergan 12.5 mg; Route: IVP; Site: left antecubital; mk2 19:18 Follow up: Response: No adverse reaction mk2 19:20 Drug: NS 0.9% 1000 ml; Route: IV; Rate: bolus; Site: left antecubital; mk2 19:56 Follow up: IV Status: Completed infusion; IV Intake: 1000ml mk2 Signatures: Chew, Jevon, MD MD sc Diego, Aren, MD MD be Piedad, Johanna, RN RN mk2
== END 2016-09-24 19:58 | disposition home or self-care (01) ==
LOC: ER 18:20
DX: G43.A0 Cyclical vomiting, in migraine, not intractable (principal); E86.0 Dehydration; R11.0 Nausea; R73.9 Hyperglycemia, unspecified; D72.829 Elevated white blood cell count, unspecified; D75.1 Secondary polycythemia; F12.90 Cannabis use, unspecified, uncomplicated; Z79.899 Other long term (current) drug therapy
CPT/HCPCS: 80048; 80076; 83690; 85025; 96361; 96374; 99284; J2550